=== PATIENT | female | born 1990 | race Caucasian/White ===

== ENCOUNTER 2018-06-22 08:47 | Emergency (ER) | payer BC, OTHER, MEDICAID, SELFPAY ==
[2018-06-22 08:54] VITALS: BP 125/61; PULSE 88; RESP 18; TEMP 36.9; O2SAT 100
[2018-06-22] MEDS: Normal Saline 1,000 ML 1000 ML IV (09:19)
[2018-06-22] MEDS: Ondansetron 4 MG/2 ML VIAL IVP (09:20)
[2018-06-22] MEDS: Ketorolac 15 MG/ML VIAL IVP (09:21)
[2018-06-22 09:22] LABS: Abs Immature Grans 0.02 k/cumm (0.0-0.09); Absolute Basophil Count 0.02 k/cumm (0.0-0.2); Absolute Eosinophil Count 0.01 k/cumm (0.0-0.7); Absolute Lymphocyte Count 0.74 k/cumm (1.2-3.4); Absolute Monocyte Count 0.79 k/cumm (0.11-0.7); Absolute Neutrophil Count 8.17 k/cumm (1.2-6.7); Basophils % 0.2; Eosinophils % 0.1; HCT 43.3 % (36.0-46.0); HGB 14.4 g/dL (12.0-15.5); Immature Grans % 0.2; Lymphocytes % 7.6; Mean Corp. HGB Concentration 33.3 g/dL (32.0-36.0); Mean Corpuscular Hemoglobin 29.7 pg (27.0-33.0); Mean Corpuscular Volume 89.3 fL (80-95); Mean Platelet Volume 9.7 fL (8.0-11.0); Monocytes % 8.1; Neutrophils % 83.8; Platelet Count 211 x1000/uL (130-400); RBC 4.85 m/cumm (4.00-5.20); RBC Distribution Width 13.8 % (11.7-14.6); White Blood Cell Count 9.75 k/cumm (4.4-10.8)
[2018-06-22 09:23] LABS: Bilirubin Small (Negative); Blood Small (Negative); Clarity Sl Cloudy; Glucose Negative (Negative); Ketones Trace mg/dL (Negative); Leukocyte Esterase Negative (Negative); Nitrite Negative (Negative); Specific Gravity >= 1.030 (1.005-1.025); Urobilinogen 0.2 EU/dL (Up TO 0.2)
--- NOTE | 2018-06-22 09:31 | W.ED.GENAD ---
Discharge Plan Discharge Details Chief Complaint: Nausea/Vomit/Diar Clinical Impression: Nausea vomiting and diarrhea, Abdominal pain Primary Care Provider: KANCHAN,LOCAL ED Provider: Lazarus Angel Disposition Patient Disposition: HOME Home Meds and New Rx's Prescriptions: New ondansetron [Zofran ODT] 4 mg tablet,disintegrating 4 mg PO TID PRN (Reason: nausea/vomit) 5 Days Qty: 14 RF: 0 Continue levonorgestrel [Mirena] 20 mcg/24 hr (5 years) Intrauterine Device 1 unit Intrauterine DAILY RF: 0 Discharge Instructions Instructions: Acute Diarrhea (ED) Additional Instructions: if symptoms continue in one week see your primary care provider if you have severe worsening of pain or persistent vomit return to the emergency department you can take 1000mg tylenol and 600mg ibuprofen every 6 hours for pain Discharge Data Discharge Physician: Lazarus Angel Medical Decision Making [facility] Narrative Medical decision making narrative: patient here with 3 days of n/v/d and interrmitent lower abdominal pain that I suspect is from gastroenetritis. HAs had appendectomy in the past. No recent travel, no hospitalizations and no abx so unlikely c diff or traveler's diarrhea. Given length of time with symptoms will treat with antiemetics and eval for electrolyte abnormalities. No upper abdominal pain so doubt cholecystitis, hepatitis or pancreatitis. No findings on exam to suggest surgical pathology at this time pt's labs unremarkable, she is feeling better and has no tenderness on exam at this time. I suspect gastroenteritis and will d/c with alden. Advised f/u with pcp and return precautions Lab Data Lab Results 06/22/18 06/22/18 Range/Units 09:05 09:15 WBC 9.75 (4.4-10.8) k/cumm RBC 4.85 (4.00-5.20) m/cumm Hgb 14.4 (12.0-15.5) g/dL Hct 43.3 (36.0-46.0) % MCV 89.3 (80-95) fL MCH 29.7 (27.0-33.0) pg MCHC 33.3 (32.0-36.0) g/dL RDW 13.8 (11.7-14.6) % Plt Count 211 (130-400) x1000/uL MPV 9.7 (8.0-11.0) fL Immature Gran % 0.2 Neutrophils % 83.8 Lymphocytes % 7.6 Monocytes % 8.1 Eosinophils % 0.1 Basophils % 0.2 Absolute Neutrophils 8.17 H (1.2-6.7) k/cumm Absolute Lymphocytes 0.74 L (1.2-3.4) k/cumm Absolute Monocytes 0.79 H (0.11-0.7) k/cumm Absolute Eosinophils 0.01 (0.0-0.7) k/cumm Absolute Basophils 0.02 (0.0-0.2) k/cumm Urine Color Dark yellow (Yellow) Urine Clarity Sl cloudy Urine pH 6.0 (5-8) Ur Specific [place] >= 1.030 H (1.005-1.025) Urine Protein 100 H (Negative) mg/dL Urine Ketones Trace H (Negative) mg/dL Urine Blood Small H (Negative) Urine Nitrite Negative (Negative) Urine Bilirubin Small H (Negative) Urine Urobilinogen 0.2 (Up TO 0.2) EU/dL Ur Leukocyte Esterase Negative (Negative) Urine Glucose Negative (Negative) mg/dL HPI - General Adult General Mode of arrival: ambulatory. Date/Time Provider Initiated Documentation: 06/22/18 09:05. Limitations to Documentation: no limitations. Information obtained by: patient. History of Present Illness 27 year old F presents to the emergency department with the chief complaint of diarrhea and vomit, described as moderate, with intensity rated at 4. Quality is described as aching, and is localized to the abdomen. Patient reports no radiation. Patient started experiencing this day(s) (3) and it has been constant. No relieving factors improve symptom(s), No exacerbating factors reported . Patient notes other (abdominal pain). Patient did receive the following treatments prior to arrival, other (none) Related Data Home Medications Medication Instructions Recorded Confirmed levonorgestrel [Mirena] 1 unit INTRAUTERINE DAILY 06/22/18 06/22/18 Previous Rx's Medication Instructions Recorded ondansetron [Zofran ODT] 4 mg PO TID PRN 5 Days #14 tab 06/22/18 Allergies Allergy/AdvReac Type Severity Reaction Status Date / Time pregabalin [From Lyrica] AdvReac bruising Unverified 06/22/18 08:57 General Stated Complaint: Nausea/Vomit/Diar JUN: 3 Review of Systems Review of Systems All systems reviewed & are unremarkable except as noted in HPI and below Constitutional Denies chills, Reports fever(s) and Denies weakness Eyes Patient Denies loss of vision ENT Denies change in voice Cardiovascular Denies chest pain and Denies dyspnea Respiratory Denies dyspnea Gastrointestinal Reports abdominal pain (general abdominal pain across lower abdomen), Reports nausea and Reports vomiting Genitourinary Denies dysuria Musculoskeletal Denies joint swelling Integumentary/Breasts Denies rash Neurologic Denies loss of vision and Denies weakness Psychiatric Denies depression Endocrine Denies cold intolerance and Denies heat intolerance Allergic/Immunologic Reports urticaria PFSH Social History Smoking/Tobacco Use Status: Never Exam Const General: no acute distress Orientation: alert HENMT Head: normal to inspection Ears: external ears normal General nose exam: external nose normal Mouth: moist mucous membranes Eyes General: appearance normal, both eyes and all related structures Neck Neck: normal visual inspection Resp Effort & Inspection: normal respiratory effort and able to speak in complete sentences Cardio Rate: regular rate Rhythm: regular rhythm GI Inspection: normal to inspection Palpation: soft, no hepatosplenomegaly, not firm, no guarding, no hepatomegaly and tender other (mild pain in rlq and llq without guarding or rebound) Skin General skin exam: no rashes or lesions noted Neuro General: alert and oriented x3 Extrem General: normal to inspection Psych Mental Status: mental status grossly normal Course Vital Signs Temperature 36.9 C 06/22/18 08:54 Pulse 88 06/22/18 08:54 Respiratory Rate 18 06/22/18 08:54 Blood Pressure 125/61 06/22/18 08:54 Pulse Oximetry 100 06/22/18 08:54 Temperature 36.9 C 06/22/18 08:54 Pulse 88 06/22/18 08:54 Respiratory Rate 18 06/22/18 08:54 Blood Pressure 125/61 06/22/18 08:54 Pulse Oximetry 100 06/22/18 08:54 Lab/Test Results Lab/Test Results: Laboratory Tests 06/22/18 06/22/18 09:05 09:15 WBC 9.75 RBC 4.85 Hgb 14.4 Hct 43.3 MCV 89.3 MCH 29.7 MCHC 33.3 RDW 13.8 Plt Count 211 MPV 9.7 Immature Gran % 0.2 Neutrophils % 83.8 Lymphocytes % 7.6 Monocytes % 8.1 Eosinophils % 0.1 Basophils % 0.2 Absolute Neutrophils 8.17 H Absolute Lymphocytes 0.74 L Absolute Monocytes 0.79 H Absolute Eosinophils 0.01 Absolute Basophils 0.02 Urine Color Dark yellow Urine Clarity Sl cloudy Urine pH 6.0 Ur Specific [place] >= 1.030 H Urine Protein 100 H Urine Ketones Trace H Urine Blood Small H Urine Nitrite Negative Urine Bilirubin Small H Urine Urobilinogen 0.2 Ur Leukocyte Esterase Negative Urine Glucose Negative
[2018-06-22 09:32] LABS: Bacteria Few HPF (Negative); C & S Indicated? No; Casts Negative LPF (Negative); Crystals Moderate Amorphous HPF (Negative); Epithelial Cells Many HPF (Negative); Mucus Heavy (Negative); WBC 0-2 HPF (0-5)
[2018-06-22 09:34] LABS: ALT 20 U/L (12-78); AST 13 U/L (15-37); Albumin 3.7 g/dL (3.4-5.0); Alkaline Phosphatase 53 U/L (46-116); Anion Gap 5.3 mmol/L (3-11); BUN 9 mg/dL (7-18); Bilirubin, Total 0.3 mg/dL (0.2-1.0); CO2 29.7 mmol/L (21.0-32.0); CREATININE 0.72 mg/dL (0.55-1.02); Calcium 8.7 mg/dL (8.5-10.1); Chloride 103 mmol/L (98-107); Glucose 104 mg/dL (70-100); Lipase 104 U/L (73-393); Potassium 3.3 mmol/L (3.5-5.1); Sodium 138 mmol/L (136-145); Total Protein 7.8 g/dL (6.4-8.2)
--- NOTE | 2018-06-22 09:35 | ED.GENADUL_ITS ---
Discharge Plan Discharge Details Chief Complaint: Nausea/Vomit/Diar Clinical Impression: Nausea vomiting and diarrhea, Abdominal pain Primary Care Provider: KANCHAN,LOCAL ED Provider: Lazarus Angel Disposition Patient Disposition: HOME Home Meds and New Rx's Prescriptions: New ondansetron [Zofran ODT] 4 mg tablet,disintegrating 4 mg PO TID PRN (Reason: nausea/vomit) 5 Days Qty: 14 RF: 0 Continue levonorgestrel [Mirena] 20 mcg/24 hr (5 years) Intrauterine Device 1 unit Intrauterine DAILY RF: 0 Discharge Instructions Instructions: Acute Diarrhea (ED) Additional Instructions: if symptoms continue in one week see your primary care provider if you have severe worsening of pain or persistent vomit return to the emergency department you can take 1000mg tylenol and 600mg ibuprofen every 6 hours for pain Discharge Data Discharge Physician: Lazarus Angel Medical Decision Making [facility] Narrative Medical decision making narrative: patient here with 3 days of n/v/d and interrmitent lower abdominal pain that I suspect is from gastroenetritis. HAs had appendectomy in the past. No recent travel, no hospitalizations and no abx so unlikely c diff or traveler's diarrhea. Given length of time with symptoms will treat with antiemetics and eval for electrolyte abnormalities. No upper abdominal pain so doubt cholecystitis, hepatitis or pancreatitis. No findings on exam to suggest surgical pathology at this time pt's labs unremarkable, she is feeling better and has no tenderness on exam at this time. I suspect gastroenteritis and will d/c with alden. Advised f/u with pcp and return precautions Lab Data Lab Results 06/22/18 06/22/18 Range/Units 09:05 09:15 WBC 9.75 (4.4-10.8) k/cumm RBC 4.85 (4.00-5.20) m/cumm Hgb 14.4 (12.0-15.5) g/dL Hct 43.3 (36.0-46.0) % MCV 89.3 (80-95) fL MCH 29.7 (27.0-33.0) pg MCHC 33.3 (32.0-36.0) g/dL RDW 13.8 (11.7-14.6) % Plt Count 211 (130-400) x1000/uL MPV 9.7 (8.0-11.0) fL Immature Gran % 0.2 Neutrophils % 83.8 Lymphocytes % 7.6 Monocytes % 8.1 Eosinophils % 0.1 Basophils % 0.2 Absolute Neutrophils 8.17 H (1.2-6.7) k/cumm Absolute Lymphocytes 0.74 L (1.2-3.4) k/cumm Absolute Monocytes 0.79 H (0.11-0.7) k/cumm Absolute Eosinophils 0.01 (0.0-0.7) k/cumm Absolute Basophils 0.02 (0.0-0.2) k/cumm Urine Color Dark yellow (Yellow) Urine Clarity Sl cloudy Urine pH 6.0 (5-8) Ur Specific [place] >= 1.030 H (1.005-1.025) Urine Protein 100 H (Negative) mg/dL Urine Ketones Trace H (Negative) mg/dL Urine Blood Small H (Negative) Urine Nitrite Negative (Negative) Urine Bilirubin Small H (Negative) Urine Urobilinogen 0.2 (Up TO 0.2) EU/dL Ur Leukocyte Esterase Negative (Negative) Urine Glucose Negative (Negative) mg/dL HPI - General Adult General Mode of arrival: ambulatory . Date/Time Provider Initiated Documentation: 06/22/18 09:05 . Limitations to Documentation: no limitations . Information obtained by: patient . History of Present Illness 27 year old F presents to the emergency department with the chief complaint of diarrhea and vomit, described as moderate, with intensity rated at 4. Quality is described as aching, and is localized to the abdomen. Patient reports no radiation. Patient started experiencing this day(s) (3) and it has been constant. No relieving factors improve symptom(s), No exacerbating factors reported . Patient notes other (abdominal pain). Patient did receive the following treatments prior to arrival, other (none) Related Data Home Medications Medication Instructions Recorded Confirmed levonorgestrel [Mirena] 1 unit INTRAUTERINE DAILY 06/22/18 06/22/18 Previous Rx's Medication Instructions Recorded ondansetron [Zofran ODT] 4 mg PO TID PRN 5 Days #14 tab 06/22/18 Allergies Allergy/AdvReac Type Severity Reaction Status Date / Time pregabalin [From Lyrica] AdvReac bruising Unverified 06/22/18 08:57 General Stated Complaint: Nausea/Vomit/Diar JUN: 3 Review of Systems Review of Systems All systems reviewed & are unremarkable except as noted in HPI and below Constitutional Denies chills, Reports fever(s) and Denies weakness Eyes Patient Denies loss of vision ENT Denies change in voice Cardiovascular Denies chest pain and Denies dyspnea Respiratory Denies dyspnea Gastrointestinal Reports abdominal pain (general abdominal pain across lower abdomen), Reports nausea and Reports vomiting Genitourinary Denies dysuria Musculoskeletal Denies joint swelling Integumentary/Breasts Denies rash Neurologic Denies loss of vision and Denies weakness Psychiatric Denies depression Endocrine Denies cold intolerance and Denies heat intolerance Allergic/Immunologic Reports urticaria PFSH Social History Smoking/Tobacco Use Status: Never Exam Const General: no acute distress Orientation: alert HENMT Head: normal to inspection Ears: external ears normal General nose exam: external nose normal Mouth: moist mucous membranes Eyes General: appearance normal, both eyes and all related structures Neck Neck: normal visual inspection Resp Effort & Inspection: normal respiratory effort and able to speak in complete sentences Cardio Rate: regular rate Rhythm: regular rhythm GI Inspection: normal to inspection Palpation: soft, no hepatosplenomegaly, not firm, no guarding, no hepatomegaly and tender other (mild pain in rlq and llq without guarding or rebound) Skin General skin exam: no rashes or lesions noted Neuro General: alert and oriented x3 Extrem General: normal to inspection Psych Mental Status: mental status grossly normal Course Vital Signs Temperature 36.9 C 06/22/18 08:54 Pulse 88 06/22/18 08:54 Respiratory Rate 18 06/22/18 08:54 Blood Pressure 125/61 06/22/18 08:54 Pulse Oximetry 100 06/22/18 08:54 Temperature 36.9 C 06/22/18 08:54 Pulse 88 06/22/18 08:54 Respiratory Rate 18 06/22/18 08:54 Blood Pressure 125/61 06/22/18 08:54 Pulse Oximetry 100 06/22/18 08:54 Lab/Test Results Lab/Test Results: Laboratory Tests 06/22/18 06/22/18 09:05 09:15 WBC 9.75 RBC 4.85 Hgb 14.4 Hct 43.3 MCV 89.3 MCH 29.7 MCHC 33.3 RDW 13.8 Plt Count 211 MPV 9.7 Immature Gran % 0.2 Neutrophils % 83.8 Lymphocytes % 7.6 Monocytes % 8.1 Eosinophils % 0.1 Basophils % 0.2 Absolute Neutrophils 8.17 H Absolute Lymphocytes 0.74 L Absolute Monocytes 0.79 H Absolute Eosinophils 0.01 Absolute Basophils 0.02 Urine Color Dark yellow Urine Clarity Sl cloudy Urine pH 6.0 Ur Specific [place] >= 1.030 H Urine Protein 100 H Urine Ketones Trace H Urine Blood Small H Urine Nitrite Negative Urine Bilirubin Small H Urine Urobilinogen 0.2 Ur Leukocyte Esterase Negative Urine Glucose Negative
[2018-06-22 10:15] VITALS: BP 108/63; PULSE 78; RESP 16; TEMP 36.8; O2SAT 99
[2018-06-23 10:51] LABS: Salmonella PCR SEE COMMENTS; Shiga Toxin PCR SEE COMMENTS; Shigella/Enteroinvasive Ecoli SEE COMMENTS
--- NOTE | 2018-06-23 16:39 | ED.FU.B_ITS ---
Follow Up Plan: Eda Barbosa was seen here on 06/22/18 for abdominal cramping and diarrhea. She was discharged home without medications. Her stool culture results today as positive for Campylobacter. I called the patient on the phone and discussed these results with her, and the plan to start her on ciprofloxacin. She reports that she is still having diarrhea but is feeling overall well. She is amenable to plan. She requests that I call her prescription into the [facility], which I did. Prescription was for ciprofloxacin 500 mg twice daily for 5 days.
[2018-06-24 11:47] LABS: Campylobacter PCR SEE COMMENTS
--- NOTE | 2018-06-24 17:03 | ED.FU.B_ITS ---
Eda called and questioned top of the contraindication list of Cipro was nerve problems. Information provided from pharmacy stated to contact prescribed before taking Cipro if you have nerve problems. Eda called and asked if there was an alternative. I looked in up to date and Azithoromycin was an alternative. She preferred Azihthro. Azithro 500mg called in to [facility] pharmacy.
== END 2018-06-22 10:16 | disposition home or self-care (01) ==
PROVIDERS: Emergency Provider Emergency Medicine; PCP Nurse Practitioner
DX: R11.2 Nausea with vomiting, unspecified (principal); R19.7 Diarrhea, unspecified; R10.9 Unspecified abdominal pain
CPT/HCPCS: 36416; 80053; 81025; 82962; 83690; 87505; 96361; 96374; 96375; 99285; 81003; 81015; 85025; 99284; J1885; J2405

== ENCOUNTER 2018-08-05 08:08 | Outpatient (REF) | payer BC, MEDICAID, SELFPAY ==
[2018-08-07 11:48] LABS: Campylobacter PCR SEE COMMENTS; Salmonella PCR SEE COMMENTS; Shiga Toxin PCR SEE COMMENTS; Shigella/Enteroinvasive Ecoli SEE COMMENTS
== END 2018-08-05 08:28 ==
LOC: NCHCN 08:08
PROVIDERS: PCP Nurse Practitioner; Visit Provider Nurse Practitioner
DX: A04.5 Campylobacter enteritis (principal)
CPT/HCPCS: 87505

== ENCOUNTER 2018-09-08 12:24 | Emergency (ER) | payer BC, OTHER, MEDICAID, SELFPAY ==
[2018-09-08 12:36] VITALS: BP 121/72; PULSE 80; RESP 18; TEMP 36.7; O2SAT 100
--- NOTE | 2018-09-08 13:00 | ED.GENADUL_ITS ---
Discharge Plan Disposition Patient Disposition: HOME Condition: Good Discharge Details Chief Complaint: Laceration Clinical Impression: Laceration Primary Care Provider: Aurora Bethea ED Provider: Lazarus Kelsey Home Meds and New Rx's Prescriptions: No Action levonorgestrel [Mirena] 20 mcg/24 hr (5 years) Intrauterine Device 1 unit Intrauterine DAILY RF: 0 Discharge Instructions Instructions: Laceration (ED) Additional Instructions: Keep dressing clean and dry and in place for five days unless soiled. Referrals: Aurora Bethea [Primary Care Provider] - Return if symptoms worsen Discharge Data Discharge Date/Time-TO BE ENTERED AT DEPARTURE: 09/08/18 13:30 Medical Decision Making Plan to clean with sterile water, apply LET and Gel Foam with dressing. Will update Tdap today. Advised to keep clean and dry. Do not remove dressing for five days unless soiled. Return to pcp as planned and return to ed if symptoms worsen. HPI General Date/Time Provider Initiated Documentation: 09/08/18 12:50 . Limitations to Documentation: no limitations . Information obtained by: patient . History of Present Illness 27 year old F presents to the emergency department with the chief complaint of laceration, HPI Narrative: 27 y/o female here with c/o left distal middle finger laceration. She shaved a piece of skin off her left middle finger while cutting chicken last night. Unsure of tetanus. Related Data Home Medications Medication Instructions Recorded Confirmed levonorgestrel [Mirena] 1 unit INTRAUTERINE DAILY 06/22/18 09/08/18 Allergies Allergy/AdvReac Type Severity Reaction Status Date / Time pregabalin [From Lyrica] AdvReac bruising Unverified 09/08/18 12:38 General Stated Complaint: Laceration JUN: 4 Review of Systems Integumentary/Breasts Reports wounds (laceration left middle finger) Exam Const General: cooperative, healthy appearing, comfortable and no acute distress Nutritional Appearance: thin Orientation: alert, awake and oriented x3 HENMT Head: normal to inspection and atraumatic Ears: hearing grossly normal bilaterally and external ears normal General nose exam: external nose normal and nares normal Eyes General: appearance normal, both eyes and all related structures Skin Wounds: wounds noted (5mm in diameter of avulsed skin missing from distal tip/ pad of left middle finger. ) Full body images: 2 1. 5mm diameter avulsion of skin left distal pad of finger. Extrem General: normal to inspection, full ROM and normal capillary refill Course Vital Signs Temperature 36.7 C 09/08/18 12:36 Pulse 80 09/08/18 12:36 Respiratory Rate 18 09/08/18 12:36 Blood Pressure 121/72 09/08/18 12:36 Pulse Oximetry 100 09/08/18 12:36 Temperature 36.7 C 09/08/18 12:36 Temperature Source Skin 09/08/18 12:36 Pulse 80 09/08/18 12:36 Respiratory Rate 18 09/08/18 12:36 Respiratory Effort 09/08/18 12:36 Blood Pressure 121/72 09/08/18 12:36 Blood Pressure Position Sitting 09/08/18 12:36 Pulse Oximetry 100 09/08/18 12:36 Oxygen Delivery Method Room Air 09/08/18 12:36 Oxygen Flow Rate 0 09/08/18 12:36 Pain Level 4 09/08/18 12:43
[2018-09-08] MEDS: Lidocaine/Epinephri/Tetracaine Topical Gel 3 ML TP (13:24)
[2018-09-08] MEDS: Gelatin SPONGE 12-7 MM PKT 1 EACH TP (13:24)
[2018-09-08 13:35] VITALS: BP 121/72; PULSE 80; RESP 18; TEMP 36.7; O2SAT 100
== END 2018-09-08 13:30 | disposition home or self-care (01) ==
LOC: ER 13:26
PROVIDERS: Emergency Provider Nurse Practitioner Family; PCP Nurse Practitioner
DX: S61.213A Laceration without foreign body of left middle finger without damage to nail, initial encounter (principal); W26.0XXA Contact with knife, initial encounter
CPT/HCPCS: 12001; 90471

== ENCOUNTER 2018-09-28 17:42 | Emergency (ER) | payer BC, OTHER, MEDICAID, SELFPAY ==
[2018-09-28 17:46] VITALS: BP 137/77; PULSE 87; RESP 16; TEMP 36.8; O2SAT 100
--- NOTE | 2018-09-28 18:11 | W.ED.GENAD ---
Discharge Plan Disposition Patient Disposition: HOME Condition: Improving Discharge Details Chief Complaint: Headache Clinical Impression: Headache Primary Care Provider: Aurora Bethea ED Provider: Darshan Mueller Home Meds and New Rx's Prescriptions: Continue sumatriptan succinate 25 mg Tablet 50 mg PO ONCE PRN (Reason: Headache) RF: 0 omeprazole 20 mg Capsule,Delayed Release(Dr/Ec) 20 mg PO DAILY RF: 0 hydroxyzine HCl 25 mg Tablet 1 tab PO DAILY RF: 0 sertraline 50 mg Tablet 1 tab PO DAILY RF: 0 levonorgestrel [Mirena] 20 mcg/24 hr (5 years) Intrauterine Device 1 unit Intrauterine DAILY RF: 0 Discharge Instructions Instructions: General Headache (ED) Additional Instructions: Return to the emergency room for any acute concern. Return if you develop a fever, persistent vomiting, or any other acute concerns. Please follow-up in primary care clinic for recheck this week. Call for an appointment time. Home to rest this evening. May use 25-50 mg of Benadryl at bedtime if needed to help with sleep. Medical Decision Making 27-year-old female presents with migraine type headache over days time that has been refractory to home medications including Imitrex and Excedrin Migraine. She has been recovering from sural nerve surgery but otherwise has an unremarkable review of systems. She arrives with normal vital signs, unremarkable neurologic exam. Differential diagnosis includes sinusitis, migraine headache, must exclude mass/CVA. IV placed, patient given fluids and parenteral medications. Referred for CT of the head. Imaging unremarkable. Pain improving with medications and I do feel the patient is appropriate for discharge. She may followup with PMD. [facility] General Mode of arrival: ambulatory. Date/Time Provider Initiated Documentation: 09/28/18 18:04. Limitations to Documentation: no limitations. Information obtained by: patient. History of Present Illness 27 year old F presents to the emergency department with the chief complaint of Migraine type headache over days time, refractive to Imitrex and Excedrin, described as severe and similar to prior episodes, Quality is described as constant, and is localized to the head. Patient reports no radiation. Patient started experiencing this day(s) and it has been constant. No relieving factors improve symptom(s), Other factors that worsen symptoms (Light and noise) . Patient notes nausea/vomiting. Related Data Home Medications Medication Instructions Recorded Confirmed levonorgestrel [Mirena] 1 unit INTRAUTERINE DAILY 06/22/18 09/28/18 hydroxyzine HCl 1 tab PO DAILY 09/28/18 09/28/18 omeprazole 20 mg PO DAILY 09/28/18 09/28/18 sertraline 1 tab PO DAILY 09/28/18 09/28/18 sumatriptan succinate 50 mg PO ONCE PRN 09/28/18 09/28/18 Allergies Allergy/AdvReac Type Severity Reaction Status Date / Time pregabalin [From Lyrica] AdvReac bruising Unverified 09/28/18 17:51 General Stated Complaint: Headache JUN: 3 Review of Systems Review of Systems 6 systems reviewed and otherwise negative PFSH Social History Smoking/Tobacco Use Status: Never Social History Smoking/Tobacco Use Status: Never Exam Narrative Exam Narrative: GEN: awake, alert, oriented 3. Pleasant, well groomed, interactive. HEAD: Normocephalic, atraumatic ENT: Mucous membranes moist, oropharynx unremarkable, External ear exam unremarkable EYES: PERRL, EOMI NECK: Full ROM, no JOSE, no menigismus CHEST/RESP: Nontender, clear to auscultation bilateral, no wheeze/rhonchi/rales CARDIOVASCULAR: RRR, no murmur, rub nikkie. 2+ Rad pulse bilateral ABDOMEN: Soft, nontender, no mass. +Bowel sounds EXT: Full ROM, no edema, no rash. Right medial thigh with healing surgical incision, no surrounding fluctuance, erythema, or tenderness Neuro: Grossly normal neurologic exam, conversant, interactive. Psych: Speech fluent, thoughts congruent, affect normal Course Vital Signs Temperature 36.8 C 09/28/18 17:46 Pulse 87 09/28/18 17:46 Respiratory Rate 16 09/28/18 17:46 Blood Pressure 137/77 09/28/18 17:46 Pulse Oximetry 100 09/28/18 17:46 Temperature 36.8 C 09/28/18 17:46 Temperature Source Skin 09/28/18 17:46 Pulse 87 09/28/18 17:46 Respiratory Rate 16 09/28/18 17:46 Respiratory Effort Non-Labored 09/28/18 17:49 Blood Pressure 137/77 09/28/18 17:46 Blood Pressure Position Sitting 09/28/18 17:46 Pulse Oximetry 100 09/28/18 17:46 Pain Level 8 09/28/18 17:54
--- NOTE | 2018-09-28 18:14 | ED.GENADUL_ITS ---
Discharge Plan Disposition Patient Disposition: HOME Condition: Improving Discharge Details Chief Complaint: Headache Clinical Impression: Headache Primary Care Provider: Aurora Bethea ED Provider: Darshan Mueller Home Meds and New Rx's Prescriptions: Continue sumatriptan succinate 25 mg Tablet 50 mg PO ONCE PRN (Reason: Headache) RF: 0 omeprazole 20 mg Capsule,Delayed Release(Dr/Ec) 20 mg PO DAILY RF: 0 hydroxyzine HCl 25 mg Tablet 1 tab PO DAILY RF: 0 sertraline 50 mg Tablet 1 tab PO DAILY RF: 0 levonorgestrel [Mirena] 20 mcg/24 hr (5 years) Intrauterine Device 1 unit Intrauterine DAILY RF: 0 Discharge Instructions Instructions: General Headache (ED) Additional Instructions: Return to the emergency room for any acute concern. Return if you develop a fever, persistent vomiting, or any other acute concerns. Please follow-up in primary care clinic for recheck this week. Call for an appointment time. Home to rest this evening. May use 25-50 mg of Benadryl at bedtime if needed to help with sleep. Medical Decision Making 27-year-old female presents with migraine type headache over days time that has been refractory to home medications including Imitrex and Excedrin Migraine. She has been recovering from sural nerve surgery but otherwise has an unremarkable review of systems. She arrives with normal vital signs, unremarkable neurologic exam. Differential diagnosis includes sinusitis, migraine headache, must exclude mass/CVA. IV placed, patient given fluids and parenteral medications. Referred for CT of the head. Imaging unremarkable. Pain improving with medications and I do feel the patient is appropriate for discharge. She may followup with PMD. [facility] General Mode of arrival: ambulatory . Date/Time Provider Initiated Documentation: 09/28/18 18:04 . Limitations to Documentation: no limitations . Information obtained by: patient . History of Present Illness 27 year old F presents to the emergency department with the chief complaint of Migraine type headache over days time, refractive to Imitrex and Excedrin, described as severe and similar to prior episodes, Quality is described as constant, and is localized to the head. Patient reports no radiation. Patient started experiencing this day(s) and it has been constant. No relieving factors improve symptom(s), Other factors that worsen symptoms ( Light and noise) . Patient notes nausea/vomiting. Related Data Home Medications Medication Instructions Recorded Confirmed levonorgestrel [Mirena] 1 unit INTRAUTERINE DAILY 06/22/18 09/28/18 hydroxyzine HCl 1 tab PO DAILY 09/28/18 09/28/18 omeprazole 20 mg PO DAILY 09/28/18 09/28/18 sertraline 1 tab PO DAILY 09/28/18 09/28/18 sumatriptan succinate 50 mg PO ONCE PRN 09/28/18 09/28/18 Allergies Allergy/AdvReac Type Severity Reaction Status Date / Time pregabalin [From Lyrica] AdvReac bruising Unverified 09/28/18 17:51 General Stated Complaint: Headache JUN: 3 Review of Systems Review of Systems 6 systems reviewed and otherwise negative PFSH Social History Smoking/Tobacco Use Status: Never Social History Smoking/Tobacco Use Status: Never Exam Narrative Exam Narrative: GEN: awake, alert, oriented 3. Pleasant, well groomed, interactive. HEAD: Normocephalic, atraumatic ENT: Mucous membranes moist, oropharynx unremarkable, External ear exam unremarkable EYES: PERRL, EOMI NECK: Full ROM, no JOSE, no menigismus CHEST/RESP: Nontender, clear to auscultation bilateral, no wheeze/rhonchi/rales CARDIOVASCULAR: RRR, no murmur, rub nikkie. 2+ Rad pulse bilateral ABDOMEN: Soft, nontender, no mass. +Bowel sounds EXT: Full ROM, no edema, no rash. Right medial thigh with healing surgical incision, no surrounding fluctuance, erythema, or tenderness Neuro: Grossly normal neurologic exam, conversant, interactive. Psych: Speech fluent, thoughts congruent, affect normal Course Vital Signs Temperature 36.8 C 09/28/18 17:46 Pulse 87 09/28/18 17:46 Respiratory Rate 16 09/28/18 17:46 Blood Pressure 137/77 09/28/18 17:46 Pulse Oximetry 100 09/28/18 17:46 Temperature 36.8 C 09/28/18 17:46 Temperature Source Skin 09/28/18 17:46 Pulse 87 09/28/18 17:46 Respiratory Rate 16 09/28/18 17:46 Respiratory Effort Non-Labored 09/28/18 17:49 Blood Pressure 137/77 09/28/18 17:46 Blood Pressure Position Sitting 09/28/18 17:46 Pulse Oximetry 100 09/28/18 17:46 Pain Level 8 09/28/18 17:54
[2018-09-28] MEDS: Ketorolac 30 MG/ML VIAL IVP (18:27)
[2018-09-28] MEDS: diphenhydrAMINE 50 MG/ML VIAL 25 MG IVP (18:27)
[2018-09-28] MEDS: Normal Saline 1,000 ML 1000 ML IV (18:28)
[2018-09-28] MEDS: Dexamethasone 10 MG/ML VIAL IVP (18:28)
--- NOTE | 2018-09-28 19:02 | DI.CT_ITS ---
SYMPTOMS/DIAGNOSIS: SEVERE HEADACHE NONCONTRAST HEAD CT: There are no prior comparison exams. No intracranial hemorrhage, mass or infarct is seen. There is no evidence of skull fracture. The visualized portions of the sinuses and mastoid air cells appear clear. IMPRESSION: Negative head CT.
[2018-09-28] MEDS: HYDROmorphone 2 MG/ML VIAL 0.5 MG IVP ×2 (19:07→19:43)
[2018-09-28] MEDS: Ondansetron 4 MG/2 ML VIAL IVP (19:44)
--- NOTE | 2018-09-28 19:51 | DI.VRAD_ITS ---
EXAM: CT Head Without Contrast EXAM DATE/TIME: 09/28/2018 7:03 PM CLINICAL HISTORY: 27 years old, female; Pain; Headache; Headache not specified; Patient HX: Severe headache; Additional info: S/P surgery 2 weeks - relocating saphenous nerve and fat grafting TECHNIQUE: Axial computed tomography images of the head/brain without contrast. All CT scans at this facility use at least one of these dose optimization techniques: automated exposure control; mA and/or kV adjustment per patient size (includes targeted exams where dose is matched to clinical indication); or iterative reconstruction. Coronal and sagittal reformatted images were created and reviewed. COMPARISON: No relevant prior studies available. FINDINGS: Brain: No acute intracranial hemorrhage identified. No midline shift. Ventricles: Normal. No ventriculomegaly. Bones/joints: Normal. No acute fracture. Sinuses: No fluid levels. Mastoid air cells: Normal as visualized. No mastoid effusion. Soft tissues: Normal. IMPRESSION: 1. No acute intracranial hemorrhage identified. If symptoms remain concerning, MRI would be beneficial. Other findings as above. Dictated and Authenticated by: Malia Tineo MD. Ordering:JANE FALK MD
[2018-09-28 19:57] VITALS: BP 115/78; PULSE 68; RESP 16; TEMP 37.2; O2SAT 98
[2018-09-28] MEDS: diphenhydrAMINE 25 MG CAP 50 MG PO (20:01)
== END 2018-09-28 20:04 | disposition home or self-care (01) ==
LOC: ER 20:19
PROVIDERS: Emergency Provider Emergency Medicine; PCP Nurse Practitioner
DX: R51 Headache (principal)
CPT/HCPCS: 96361; 96374; 96375; 96376; 99284; 70450; J1100; J1200; J1885; J2405

== ENCOUNTER 2018-10-30 10:05 | Outpatient (REF) | payer BC, OTHER, MEDICAID, SELFPAY ==
[2018-10-30 13:05] LABS: Abs Immature Grans 0.02 k/cumm (0.0-0.09); Absolute Basophil Count 0.03 k/cumm (0.0-0.2); Absolute Eosinophil Count 0.06 k/cumm (0.0-0.7); Absolute Lymphocyte Count 1.98 k/cumm (1.2-3.4); Absolute Monocyte Count 0.66 k/cumm (0.11-0.7); Absolute Neutrophil Count 3.26 k/cumm (1.2-6.7); Basophils % 0.5; HCT 41.5 % (36.0-46.0); HGB 14.1 g/dL (12.0-15.5); Immature Grans % 0.3; Lymphocytes % 32.9; Mean Corpuscular Hemoglobin 30.7 pg (27.0-33.0); Mean Corpuscular Volume 90.4 fL (80-95); Neutrophils % 54.3; Platelet Count 249 x1000/uL (130-400); RBC 4.59 m/cumm (4.00-5.20); RBC Distribution Width 13.2 % (11.7-14.6); White Blood Cell Count 6.01 k/cumm (4.4-10.8)
[2018-10-30 14:09] LABS: ALT 23 U/L (12-78); AST 19 U/L (15-37); Albumin 3.8 g/dL (3.4-5.0); Alkaline Phosphatase 64 U/L (46-116); BUN 10 mg/dL (7-18); Bilirubin, Total 0.3 mg/dL (0.2-1.0); CREATININE 0.79 mg/dL (0.55-1.02); Chloride 103 mmol/L (98-107); Glucose 101 mg/dL (70-100); Potassium 4.2 mmol/L (3.5-5.1); Sodium 139 mmol/L (136-145); TSH (W/Ref FT4) 1.82 uIU/mL (0.358-3.74); Total Protein 7.5 g/dL (6.4-8.2); Vitamin B12 410 pg/mL (193-986)
== END 2018-10-30 10:25 ==
LOC: NCHCN 10:05
PROVIDERS: PCP Nurse Practitioner; Visit Provider Nurse Practitioner Family
DX: F39 Unspecified mood [affective] disorder (principal); F41.8 Other specified anxiety disorders
CPT/HCPCS: 80053; 82607; 84443; 85025

== ENCOUNTER 2018-11-25 19:56 | Emergency (ER) | payer OTHER, SELFPAY ==
[2018-11-25 19:59] VITALS: BP 116/77; PULSE 87; RESP 16; TEMP 36.5; O2SAT 100
--- NOTE | 2018-11-25 20:03 | ED.GENADUL_ITS ---
Discharge Plan Disposition Patient Disposition: HOME Condition: Good Discharge Details Chief Complaint: Orthopedic Clinical Impression: Injury of knee, right Primary Care Provider: Aurora Bethea ED Provider: Bill Padilla Meds and New Rx's Prescriptions: Continued riboflavin (vitamin B2) 100 mg tablet 100 mg PO DAILY RF: 0 magnesium oxide 400 mg magnesium tablet 400 mg PO DAILY RF: 0 sumatriptan succinate 25 mg Tablet 50 mg PO ONCE PRN (Reason: Headache) RF: 0 omeprazole 20 mg Capsule,Delayed Release(Dr/Ec) 20 mg PO DAILY RF: 0 Mirena 20 mcg/24 hr (5 years) Intrauterine Device 1 unit Intrauterine DAILY RF: 0 trazodone 50 mg Tablet 50 mg PO DAILY RF: 0 lamotrigine 25 mg tablet 50 mg PO DAILY RF: 0 Discharge Instructions Additional Instructions: You will need follow up with orthopedics. Wear the brace and weight bear as tolerated until your follow up. Continue ice and Motrin. May also take Tylenol if needed. Return to ED if worse pain, neuro changes, other concerns. Referrals: Siddhartha Harvey MD [ [facility]] - Discharge Data Discharge Date/Time-TO BE ENTERED AT DEPARTURE: 11/25/18 20:29 Medical Decision Making Patient with a right knee injury that occurred during physical therapy. [place] a pop and pain while doing squats. Difficulty ambulating since then. Did try doing physical therapy yesterday with some difficulty. There is no direct trauma to the knee. She is able to lift her leg off the bed so quad/patellar tendon intact. Patella appears to be in normal position. She is ambulatory but with a limp. Ligaments appear to be intact but difficult to completely assess due to pain. I do not think x-rays will add anything as there is no direct trauma. Will place in knee immobilizer and make weight-bear as tolerated. Continue ice and ibuprofen. Acetaminophen as needed. Refer to orthopedics for follow-up. HPI General Mode of arrival: ambulatory . Date/Time Provider Initiated Documentation: 11/25/18 20:00 . Limitations to Documentation: no limitations . Information obtained by: patient and RN notes reviewed . HPI Narrative: Patient presents to the ED with right knee injury. Patient originally had an injury to the right knee about a year and a half ago. She sustained a crush injury. There apparently was no orthopedic damage, but her saphenous nerve was injured and needed to be repaired. She has been going to physical therapy recovering from the surgery. During physical therapy on the first of this month she was doing squats and felt a pop and had immediate tearing pain in her right knee. She has been limping ever since. She could not do physical therapy that well this week. She contacted the surgeon's office who did the nerve repair. Since this sounded like an orthopedic injury she was referred to the emergency department. Related Data Home Medications Medication Instructions Recorded Confirmed Mirena 1 unit INTRAUTERINE DAILY 06/22/18 11/25/18 omeprazole 20 mg PO DAILY 09/28/18 11/25/18 sumatriptan succinate 50 mg PO ONCE PRN 09/28/18 11/25/18 magnesium 400 mg (as magnesium 400 mg PO DAILY tab 10/23/18 11/25/18 oxide) tablet riboflavin (vitamin B2) 100 mg 100 mg PO DAILY 10/23/18 11/25/18 tablet lamotrigine 50 mg PO DAILY 11/25/18 11/25/18 trazodone 50 mg PO DAILY 11/25/18 11/25/18 Allergies Allergy/AdvReac Type Severity Reaction Status Date / Time hydrocodone AdvReac Nausea Unverified 11/25/18 20:03 pregabalin [From Lyrica] AdvReac bruising Unverified 11/25/18 20:03 General JUN: 3 Review of Systems Constitutional Denies weakness Musculoskeletal Denies back pain, Reports arthralgias, Denies joint swelling, Reports limited ra nge of motion and Reports numbness (old) Integumentary/Breasts Denies erythema and Denies wounds Neurologic Denies focal weakness, Reports numbness (old) and Denies weakness FOR[facility] Medical History Adjustment disorder (Chronic) Anxiety and depression (Chronic) Chronic daily headache (Chronic) GERD (gastroesophageal reflux disease) (Chronic) Migraine (Chronic) Neuralgia (Chronic) Campylobacter enteritis (Inactive) Surgical History S/P nerve repair (Acute) S/P appendectomy (Inactive) Social History Smoking/Tobacco Use Status: Never Exam Const General: cooperative, comfortable and no acute distress Orientation: alert and oriented x3 Skin General skin exam: no rashes or lesions noted Neuro General: alert, oriented x3, no focal motor deficits and CN's II-XI intact bilaterally Sensory Exam: lower extremity (right medial leg no sensation chronic) Extrem General: normal exam except as noted Right lower extremity: hip/thigh Details: normal to inspection; no tenderness, knee Details: tenderness Location: of the patella, abnormal ROM (able to fully extend; unable to flex past 90) Details: pain with active ROM during and pain with passive ROM during; able to extend lower leg actively and knee ligament exam normal (appear in tact but difficult to perform due to pain), lower leg Details: normal to inspection and no edema; no tenderness and foot Details: vascular exam Details: dorsalis pedis pulse present and posterior tibial pulse present
== END 2018-11-25 20:29 | disposition home or self-care (01) ==
PROVIDERS: Emergency Provider Emergency Medicine; PCP Nurse Practitioner
DX: M25.561 Pain in right knee (principal); S89.91XA Unspecified injury of right lower leg, initial encounter; X50.9XXA Other and unspecified overexertion or strenuous movements or postures, initial encounter
CPT/HCPCS: 29505; 99283; L1830

== ENCOUNTER 2018-12-04 12:17 | Outpatient (CLI) | payer OTHER, SELFPAY ==
--- NOTE | 2018-12-04 12:02 | DI.RAD_ITS ---
SYMPTOMS/DIAGNOSIS: RT KNEE PAIN, INJURY RIGHT KNEE: The bony structures are normally mineralized. The joint space is well maintained. There is no evidence of a fracture or dislocation. BILATERAL MERCHANT VIEW: No bony or joint abnormality is demonstrated involving the right or left knee.
== END 2018-12-04 12:37 ==
PROVIDERS: PCP Nurse Practitioner; Visit Provider Physician Assistant
DX: M25.561 Pain in right knee (principal)
CPT/HCPCS: 73565; 73560

== ENCOUNTER 2018-12-08 00:51 | Outpatient (CLI) | payer OTHER, SELFPAY ==
--- NOTE | 2018-12-08 13:45 | DI.MRI_ITS ---
SYMPTOM/DIAGNOSIS: M23.91, RT KNEE PAIN FOLLOWING INJURY, INTERNAL DERANGEMENT RIGHT KNEE MRI: Routine noncontrast examination was performed. Comparison xray is 12/04/18. There is no evidence of a meniscal tear. The anterior cruciate, posterior cruciate, medial and lateral collateral ligaments, extensor mechanism, medial and lateral retinaculum and popliteus tendon are all intact. The articular cartilage is well maintained. There is normal marrow signal. No evidence of an occult fracture or avascular necrosis. No significant joint effusion is seen. No soft tissue mass or focal fluid collection is appreciated. IMPRESSION: No acute abnormality.
== END 2018-12-08 01:11 ==
PROVIDERS: PCP Nurse Practitioner; Visit Provider Orthopaedic Surgery
DX: M25.561 Pain in right knee (principal); M23.91 Unspecified internal derangement of right knee
CPT/HCPCS: 73721

== ENCOUNTER 2021-01-02 14:57 | Outpatient (REF) | payer MEDICAID, SELFPAY ==
[2021-01-02 16:24] LABS: ALT 21 U/L (14-59); AST 16 U/L (15-37); Albumin 4.1 g/dL (3.4-5.0); Alkaline Phosphatase 64 U/L (46-116); Anion Gap 10.9 mmol/L (3-11); BUN 11 mg/dL (7-18); Bilirubin, Total 0.4 mg/dL (0.2-1.0); CO2 27.1 mmol/L (21.0-32.0); CREATININE 0.9 mg/dL (0.55-1.02); Calcium 9.2 mg/dL (8.5-10.1); Chloride 103 mmol/L (98-107); Glucose 73 mg/dL (74-106); Potassium 4.2 mmol/L (3.5-5.1); Sodium 141 mmol/L (136-145); Total Protein 7.7 g/dL (6.4-8.2)
== END 2021-01-02 14:58 | disposition home or self-care (01) ==
LOC: NCHCN 14:57
PROVIDERS: PCP Nurse Practitioner; Visit Provider Nurse Practitioner
DX: F31.60 Bipolar disorder, current episode mixed, unspecified (principal)
CPT/HCPCS: 80053